=== PATIENT | male | born 1965 | race Caucasian/White ===

== ENCOUNTER → 2021-09-03 14:40 | Outpatient (CLI) | payer OTHER, SELFPAY ==
--- NOTE | 2021-09-03 | DI.NM.S_ITS ---
PROCEDURE: NM EXERCISE TREADMILL NON NUC COMPARISON: None. INDICATIONS: Chest pain, unspecified FINDINGS: Rest ECG sinus rhythm. Breezy protocol 12:00, max HR 173 bpm (105% peak predicted), peak blood pressure 204/110, 12.8 METS, JULIANA -24%. Stress ECG sinus tachycardia, occasional PVCs, no ST segment changes or arrhythmias. Patient developed left-sided chest discomfort in early recovery without ECG changes and which resolved later in recovery. IMPRESSION: 1. No evidence of exercise-induced ischemia on ECG. Occasional PVCs with exercise noted. 2. Hypertensive response to exercise. 3. Very good exercise capacity. 4. Post exercise left-sided chest discomfort. Dictated by: Precious Chu D.O. on 09/04/2021 at 17:23 Approved by: Precious Chu M.D. on 09/04/2021 at 17:26
--- NOTE | 2021-09-03 16:09 | P.PCN_ITS ---
Cardiac Stress Test Report Referral & Results Indication: CHEST PAIN Rest ECG: SINUS RHYTHM Procedure Note: TREADMILL STRESS (NON NUC) Impression: STANDARD YAZ PROTOCOL; MAX EFFORT ETT; JULIANA -24% VERY GOOD EXER CAPACITY; MAX HR 173 (105% OF MAX PREDICTED); HAD HYPERTENSIVE RESPONSE; MAX BP 204/110; BASELINE ECG SINUS RHYTHM; NO SIGNIFICANT ST CHANGES ON ECG DURONG OR AFTER EXER; OCCASSIONAL PVCS; HAD LEFT SIDED CHEST DISCOMFORT IN IMMEDIATE RECOVERY (PATIENT UNABLE TO DESCRIBE IT) WHICH RESOLVED LATER IN RECOVERY; NO ASSOCIATED ST CHANGES NOTED. HAD MINIMAL SOB. IN RECOVERY BP REDUCED TO 140/82. 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 REGI LALA. Please note: Actual ECG tracings can be found in the PACS system.
== END ==
PROVIDERS: Referring Provider Student in an Organized Health Care Education/Training Program; Visit Provider Student in an Organized Health Care Education/Training Program
DX: R07.89 Other chest pain (principal)
CPT/HCPCS: 93017